=== PATIENT | female | born 1975 | race Caucasian/White ===

== ENCOUNTER → 2016-12-20 | Outpatient (CLI) | payer BC ==
--- NOTE | 2016-12-20 16:25 | RAD ---
Three-view cervical spine radiographs 12/20/2016 Clinical history: Neck pain which radiates down both shoulders, left greater than right for one month. AP, lateral, swimmer's lateral and AP open mouth odontoid digital radiographs of the cervical spine were obtained. There is slight reversal of the normal cervical lordosis. Minimal lateral curvature of the cervical spine is seen convex to the right. No fracture or subluxation of the cervical vertebrae is seen. Mild degenerative changes are seen involving the lower cervical disc spaces consisting of vertebral endplate sclerosis and minimal to mild anterior vertebral body osteophyte formation. No prevertebral soft tissue swelling is seen. Impression: Mild degenerative changes are seen involving the lower cervical spine. No acute osseous abnormality is seen.
== END | disposition home or self-care (01) ==
LOC: DXRADRC 13:57
PROVIDERS: ATTEND General Practice
DX: M54.2 Cervicalgia (principal)
CPT/HCPCS: 72040

== ENCOUNTER → 2018-06-21 | Outpatient (CLI) | payer BC ==
--- NOTE | 2018-06-21 17:59 | RAD ---
Indication:FELL THIS MORNING, 3RD/4TH DIGIT PAIN, RIGHT WRIST/HAND PAIN TECHNIQUE: 3 views of right hand COMPARISON: None FINDINGS/ impression: No acute fracture or dislocation. No soft tissue abnormality. No arthritis. Electronically signed by: Ruben Baker DO (06/21/2018 5:55 PM) [facility]
--- NOTE | 2018-06-21 18:02 | RAD ---
Indication: Fall, pain. TECHNIQUE: 2 views of the right wrist COMPARISON: None Findings/ impression: No acute fracture or dislocation. Electronically signed by: Ruben Baker DO (06/21/2018 5:58 PM) [facility]
== END | disposition home or self-care (01) ==
LOC: DXRAD 17:07
PROVIDERS: ATTEND Physician Assistant
DX: S63.591A Other specified sprain of right wrist, initial encounter (principal); M79.644 Pain in right finger(s); X58.XXXA Exposure to other specified factors, initial encounter; Y93.89 Activity, other specified; Y92.89 Other specified places as the place of occurrence of the external cause; Y99.8 Other external cause status
CPT/HCPCS: 73100; 73120

== ENCOUNTER 2018-12-30 22:49 | Emergency (ER) | payer BC ==
[~2018-12-30] VITALS: Ht 172.7 cm; Wt 145.5 kg
[2018-12-30 22:50] VITALS: BP 137/75
--- NOTE | 2018-12-30 22:56 | ED.ADGEN ---
Past History Past Medical History: No Pertinent History, Bipolar Past Surgical History: No Surgical History Smoking: Non-smoker Alcohol Use: None Drug Use: None Adult General Chief Complaint Chief Complaint ".. I had this tooth pulled.. ( (15).. they said everything was okay.. but now hold side of my face is swollen..." [facility] HPI Patient is a 43 year old FEMALE who presents with above hx and complaints of dental pain at site of distal extraction (2014. Patient has erythema of the gum at site 15. . Has swelling of facial cheek on the left. Does have slight adenop athy at angle of jaw. No pointing abscess. Patient denies any history immunosuppression. No recent travel. No trismus. Patient not currently on antibiotics. Review of Systems Review of Systems Constitutional: Subjective complaints of fever Eyes: Denies change in visual acuity, redness, or eye pain [] HENT: Denies nasal congestion or sore throat []complaints of dental pain and facial swelling Respiratory: Denies cough or shortness of breath [] Cardiovascular: No additional information not addressed in HPI [] GI: Denies abdominal pain, nausea, vomiting, bloody stools or diarrhea [] : Denies dysuria or hematuria [] Musculoskeletal: Denies back pain or joint pain [] Integument: Denies rash or skin lesions [] Neurologic: Denies headache, focal weakness or sensory changes [] Endocrine: Denies polyuria or polydipsia [] All other systems were reviewed and found to be within normal limits, except as documented in this note. Family History Family History Noncontributory Current Medications Current Medications Current Medications Medications (Trade) Dose Ordered Sig/[facility] Start Time Stop Time Status Last Admin Dose Admin Ceftriaxone Sodium (Rocephin Im) 1 gm 1X ONCE 12/31/18 00:00 12/31/18 00:01 DC 12/31/18 00:25 1 GM Ketorolac Tromethamine (Toradol Im) 60 mg 1X ONCE 12/31/18 00:30 12/31/18 00:31 DC 12/31/18 00:25 60 MG Lidocaine HCl 20 ml STK-MED ONCE 12/31/18 00:15 12/31/18 00:16 DC Metronidazole (Flagyl) 500 mg 1X ONCE 12/31/18 00:30 12/31/18 00:31 DC 12/31/18 00:24 500 MG Allergies Allergies Allergies Coded Allergies Type Severity Reaction Last Updated Verified Sulfa (Sulfonamide Antibiotics) Adverse Reaction VOMITING 08/30/13 Yes codeine Adverse Reaction MANIC 08/30/13 Yes morphine Adverse Reaction MANIC 08/30/13 Yes Physical Exam Physical Exam Constitutional: Moderately acute distress, non-toxic appearance. [] HENT: Normocephalic, atraumatic, bilateral external ears normal, oropharynx moist, no oral exudates, nose normal. []Left facial swelling and pain at site of extraction tooth 15 Eyes: PERRLA, EOMI, conjunctiva normal, no discharge. [] Neck: Normal range of motion, no tenderness, supple, no stridor. [] Cardiovascular:Heart rate regular rhythm, no murmur [] Lungs & Thorax: Bilateral breath sounds equal apex auscultation [] Abdomen: Bowel sounds normal, soft, no tenderness, no masses, no pulsatile masses. [] Morbid obesity. Skin: Warm, dry, no erythema, no rash. [] Back: No tenderness, no CVA tenderness. [] Extremities: No tenderness, no cyanosis, no clubbing, ROM intact, ankle edema. [] Neurologic: Alert and oriented X 3, normal motor function, normal sensory function, no focal deficits noted. [] Psychologic: Affect anxious, judgement normal, mood normal. [] Current Patient Data Lab Results Laboratory Tests Test 12/30/18 23:41 POC Urine HCG, Qualitative hcg negative (Negative) EKG EKG [] Radiology/Procedures Radiology/Procedures [] Course & Med Decision Making Course & Med Decision Making Pertinent Labs and Imaging studies reviewed. (See chart for details) Pt. to keep dental followup. Take Tylenol and Ibuprofen for pain. Marked discomfort take Percocet. Take Keflex 500 three times a day, Take Flagyl 500 three times aday. Must follow. [] Final Impression Final Impression 1. Dental Pain[] 15. 2. Cellulitis vs Abscess Andriy Disclaimer Andriy Disclaimer This electronic medical record was generated, in whole or in part, using a voice recognition dictation system. Discharge Summary Visit Information Final Diagnosis Problems Medical Problems: (1) Dental abscess Status: Acute (2) Pain, dental Status: Acute Brief Hospital Course Allergies Allergies Coded Allergies Type Severity Reaction Last Updated Verified Sulfa (Sulfonamide Antibiotics) Adverse Reaction VOMITING 2/20/14 Yes codeine Adverse Reaction MANIC 08/30/13 Yes morphine Adverse Reaction MANIC 08/30/13 Yes Lab Results Laboratory Tests Test 12/30/18 23:41 Bedside Urine HCG, Qualitative hcg negative (Negative) Brief Hospital Course Ms. Jean is a 43 old female who presented with dental pain and abscess/cellulitis at location of tooth 15 - extracted. Discharge Information Condition at Discharge: Stable Disposition/Orders: D/C to Home Dischare Medications Current Medications Ceftriaxone Sodium (Rocephin Im) 1 gm 1X ONCE IM Last administered on 12/31/18at 00:25; Admin Dose 1 GM; Start 12/31/18 at 00:00; Stop 12/31/18 at 00:01; Status DC Ketorolac Tromethamine (Toradol Im) 60 mg 1X ONCE IM Last administered on 12/31/18at 00:25; Admin Dose 60 MG; Start 12/31/18 at 00:30; Stop 12/31/18 at 00:31; Status DC Metronidazole (Flagyl) 500 mg 1X ONCE PO Last administered on 12/31/18at 00:24; Admin Dose 500 MG; Start 12/31/18 at 00:30; Stop 12/31/18 at 00:31; Status DC Lidocaine HCl 20 ml STK-MED ONCE .ROUTE ; Start 12/31/18 at 00:15; Stop 12/31/18 at 00:16; Status DC Active Scripts Active Percocet 5-325 Mg Tablet (Oxycodone Hcl/Acetaminophen) 1 Each Tablet 1 Tab PO PRN Q6HRS PRN Flagyl (Metronidazole) 500 Mg Tablet 500 Mg PO TID 10 Days Hydrocodone-Ibuprofen 7.5-200 (Hydrocodone/Ibuprofen) 1 Each Tablet 1 Tab PO PRN Q6HRS PRN Keflex (Cephalexin) 500 Mg Capsule 500 Mg PO TID Andriy Disclaimer This chart was dictated in whole or in part using Voice Recognition software in a busy, high-work load, and often noisy Emergency Department environment. It may contain unintended and wholly unrecognized errors or omissions. KYLEIGH JAIMES MD Dec 30, 2018 22:56
[2018-12-30] MEDS ORDERED: CEPH-264 PO (23:42)
[2018-12-31] MEDS ORDERED: cefTRIAXone IM 1 GM VIAL IM ONE
[2018-12-31] MEDS ORDERED: METR500T PO (00:06)
[2018-12-31] MEDS ORDERED: HYDR-1179 PO (00:06)
[2018-12-31] MEDS ORDERED: LIDOCAINE 1% Multi-Dose 20 ML VIAL. ONE (00:15)
[2018-12-31] MEDS ORDERED: KETOROLAC 60 MG/2 ML VIAL. IM ONE (00:30)
[2018-12-31] MEDS ORDERED: metroNIDAZOLE 500 MG TABLET PO ONE (00:30)
[2018-12-31] MEDS ORDERED: OXYC1TAB15 PO (01:00)
== END 2018-12-31 01:00 | disposition home or self-care (01) ==
LOC: ER 22:49
DX: K04.7 Periapical abscess without sinus (principal); F31.9 Bipolar disorder, unspecified; Z88.2 Allergy status to sulfonamides; Z88.5 Allergy status to narcotic agent; Z79.899 Other long term (current) drug therapy
CPT/HCPCS: 81025; 96372; 99284; J0696; J1885

== ENCOUNTER 2019-03-20 16:22 | Emergency (ER) | payer BC ==
[~2019-03-20] VITALS: Ht 172.7 cm; Wt 142.8 kg
[2019-03-20 16:22] VITALS: BP 135/100
[~2019-03-20 16:22] MED LIST: CEPH-264 PO; HYDR-1179 PO; METR500T PO; OXYC1TAB15 PO
[2019-03-20] MEDS ORDERED: KETOROLAC 60 MG/2 ML VIAL. IM ONE (17:15)
[2019-03-20] MEDS ORDERED: ORPHENADRINE CITRATE 60 MG/2 ML VIAL. IM ONE (17:15)
--- NOTE | 2019-03-20 17:15 | PHYS DOC ---
Past History Past Medical History: No Pertinent History, Bipolar Past Surgical History: No Surgical History Smoking: Non-smoker Alcohol Use: None Drug Use: None Adult General Chief Complaint Chief Complaint: BACK PAIN OR INJURY [facility] HPI 43-year-old female presents to emergency Department with complaints of right knee pain, acute on chronic back pain. Patient states she was getting up from a sitting position today on the floor and felt a pop in her knee subsequently she's had increasing pain as well as spasm to her lower back. She thinks that she has exacerbated her low back pain by favoring her right knee. Denies any shortness of breath, nausea, vomiting, chest pain Review of Systems Review of Systems Constitutional: Denies fever or chills [] Respiratory: Denies cough or shortness of breath [] Cardiovascular: No additional information not addressed in HPI [] GI: Denies abdominal pain, nausea, vomiting, bloody stools or diarrhea [] Musculoskeletal: Lumbar back pain, right knee pain Integument: Denies rash or skin lesions [] Neurologic: Denies headache, focal weakness or sensory changes [] All other systems were reviewed and found to be within normal limits, except as documented in this note. Current Medications Current Medications Current Medications Medications (Trade) Dose Ordered Sig/[facility] Start Time Stop Time Status Last Admin Dose Admin Ketorolac Tromethamine (Toradol Im) 60 mg 1X ONCE 03/20/19 17:15 03/20/19 17:16 Orphenadrine Citrate (Norflex) 60 mg 1X ONCE 03/20/19 17:15 03/20/19 17:16 Allergies Allergies Allergies Coded Allergies Type Severity Reaction Last Updated Verified Sulfa (Sulfonamide Antibiotics) Adverse Reaction VOMITING 08/30/13 Yes codeine Adverse Reaction MANIC 08/30/13 Yes morphine Adverse Reaction MANIC 08/30/13 Yes Physical Exam Physical Exam Constitutional: Well developed, well nourished, in mild distress secondary to pain HENT: Normocephalic, atraumatic, bilateral external ears normal, oropharynx moist, no oral exudates, nose normal. [] Eyes: PERRLA, EOMI, conjunctiva normal, no discharge. [] Cardiovascular:Heart rate regular rhythm, no murmur [] Lungs & Thorax: Bilateral breath sounds clear to auscultation [] Abdomen: Bowel sounds normal, soft, no tenderness, no masses, no pulsatile masses. [] Skin: Warm, dry, no erythema, no rash. [] Back: Tender to palpation along the midline as well as paraspinous muscles Extremities: Tenderness appreciated over the knee, no significant malformation appreciated Neurologic: Alert and oriented X 3, normal motor function, normal sensory function, no focal deficits noted. [] Psychologic: Affect normal, judgement normal, mood normal. [] Current Patient Data Vital Signs * Moderate Temperature (Fahrenheit): * 98.1 degrees F (97.6-99.5) Patient Temperature * 98.1 degrees F (97.5-99.5) Temperature Source * Oral Blood Pressure Systolic * 135 mm Hg (100-140) Blood Pressure Diastolic * 100 mm Hg (60-100) Blood Pressure Mean * 112 mm Hg Pulse Rate * 68 beats per minute (60-90) Respiratory Rate * 20 breaths per minute (12-24) Oxygen Delivery Method * Room Air Bedside Pulse Oximetry * 98 % Treatment Prior to Arrival EKG EKG [] Radiology/Procedures Radiology/Procedures [] Course & Med Decision Making Course & Med Decision Making Pertinent Labs and Imaging studies reviewed. (See chart for details) She presented to the emergency Department with complaints of right knee, acute on chronic back pain. Since was getting up from a sitting position today with injury of her right knee pop, states she's been favoring her right knee which has exacerbated her chronic back pain. Recent right more flex and Toradol. Imaging reviewed. Well's score, for DVT 0 low risk. Discussed dc with patient and plans for follow up with PCP. Rx provided for pain and spasm. Dragon Disclaimer Dragon Disclaimer This electronic medical record was generated, in whole or in part, using a voice recognition dictation system. Departure Departure: Impression: Primary Impression: Right knee pain Additional Impression: Acute exacerbation of chronic low back pain Disposition: HOME, SELF-CARE Condition: STABLE Referrals: STEF PIEDRA MD (PCP) Patient Instructions: Back Pain, Adult, [id number], Knee Pain, [id number] Scripts Tramadol Hcl (TRAMADOL HCL) 50 Mg Tablet 50 MG PO PRN Q6HRS PRN for PAIN, #10 TAB Prov: MICHAEL QUEEN MD 03/20/19 Cyclobenzaprine Hcl (CYCLOBENZAPRINE HCL) 5 Mg Tablet 1 TAB PO TID for Muscle Spasm for 10 Days, #30 TAB Prov: MICHAEL QUEEN MD 03/20/19 Problem Qualifiers Primary Impression: Right knee pain Chronicity: acute Qualified Codes: M25.561 - Pain in right knee MICHAEL QUEEN MD Mar 20, 2019 17:15
--- NOTE | 2019-03-20 17:57 | RAD ---
Right knee 3 views. HISTORY: Right knee injury 3 views were taken of the right knee. There is not evidence of an acute fracture. There is no joint effusion. There is no acute osseous abnormality. IMPRESSION: 1. No acute osseous abnormality noted in the right knee. Electronically signed by: Alexander Mon MD (03/20/2019 5:54 PM) [id number]
[2019-03-20] MEDS ORDERED: TRAM50TA PO (18:06)
[2019-03-20] MEDS ORDERED: CYCL5TAB PO (18:06)
--- NOTE | 2019-03-20 20:40 | RAD ---
Three-view lumbar spine radiographs 03/20/2019 CLINICAL HISTORY: Acute on chronic low back pain. AP and 2 lateral digital radiographs of the lumbar spine were obtained. A lap band device is noted in place. Surgical clips are seen within the right upper quadrant abdomen consistent with a cholecystectomy. Minimal S-shaped curvature of the thoracolumbar spine is seen. No fracture or subluxation of the lumbar vertebrae is noted. Degenerative changes are seen involving the lumbar disc spaces consisting of varying degrees of disc space narrowing, vertebral endplate sclerosis and minimal to mild anterior and posterior vertebral body osteophyte formation. Degenerative changes are seen involving the facet joints of the lower lumbar spine. IMPRESSION: Degenerative changes are seen involving lumbar spine as discussed above. No fracture or subluxation is seen. Electronically signed by: Jose Jackson MD (03/20/2019 8:37 PM) [facility]
== END 2019-03-20 18:30 | disposition home or self-care (01) ==
LOC: ER 16:22
DX: M25.561 Pain in right knee (principal); G89.29 Other chronic pain; M54.5 Low back pain; F31.9 Bipolar disorder, unspecified; Z88.2 Allergy status to sulfonamides; Z88.5 Allergy status to narcotic agent; X50.9XXA Other and unspecified overexertion or strenuous movements or postures, initial encounter; Y93.89 Activity, other specified; Y92.89 Other specified places as the place of occurrence of the external cause; Y99.8 Other external cause status
CPT/HCPCS: 72100; 73562; 96372; 99284; J1885; J2360

== ENCOUNTER 2019-05-03 14:50 | Emergency (ER) | payer BC ==
[~2019-05-03] VITALS: Ht 171.4 cm; Wt 141.3 kg
[~2019-05-03 14:50] MED LIST changes: +CYCL5TAB PO; +TRAM50TA PO
[2019-05-03] MEDS ORDERED: ASPIRIN 81 MG TAB.CHEW PO ONE (15:15)
--- NOTE | 2019-05-03 15:23 | EKG ---
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
--- NOTE | 2019-05-03 15:34 | PHYS DOC ---
Past History Past Medical History: Anxiety, Bipolar, Depression Past Surgical History: Cholecystectomy, Tonsillectomy, Other Additional Past Surgical Histo: lap band; lymph node removed from neck Smoking: Non-smoker Alcohol Use: Occasionally Drug Use: None Adult General Chief Complaint Chief Complaint: ANXIETY/PANIC ATTACK [facility] HPI Patient is a 43-year-old female who presents to the emergency department for evaluation from her PCPs office. She has a history of anxiety, along with bipolar disorder, as well as obesity. She states that she had been prescribed Xanax in the past but had not been taking for about a year but has been having worsening anxiety attacks. She states that she has been having increasing anxiety attacks over the past several days, and associated with her anxiety attacks he has had pressure in her chest. She states that she has had the EXACT SAME pressure in her chest with prior anxiety attacks in the past. She went to her PCPs office, who restarted her Xanax today, by prescription, but because of the chest discomfort an EKG was performed. The patient's PCP called because he was concerned that there was some changes in the lateral leads, primarily V4- v6.. Upon my review of the EKG from the PCPs office, it appears that there are some subtle nonspecific changes on the simultaneous QRS complex in lead V4, V5, and V6, which are not present on the other complexes, suggesting that this might have been related to some artifact at the time. The patient denies any significant shortness of breath, dyspnea on exertion, nausea, vomiting, or diaphoresis. There are no alleviating or exacerbating factors to her symptoms. Soon after I assessed the patient she did have a full one panic attack in the emergency department and requests something to help manage her anxiety, which she thinks is the primary drivers' cash clerk of her symptoms. She reports having had a stressful time at work recently which is what has exacerbated her anxiety. She denies SI or HI. Review of Systems Review of Systems Constitutional: Denies fever or chills [] Eyes: Denies change in visual acuity, redness, or eye pain [] HENT: Denies nasal congestion or sore throat [] Respiratory: Denies cough or shortness of breath [] Cardiovascular: No additional information not addressed in HPI [] GI: Denies abdominal pain, nausea, vomiting, bloody stools or diarrhea [] : Denies dysuria or hematuria [] Musculoskeletal: Denies back pain or joint pain [] Integument: Denies rash or skin lesions [] Neurologic: Denies headache, focal weakness or sensory changes [] Endocrine: Denies polyuria or polydipsia [] All other systems were reviewed and found to be within normal limits, except as documented in this note. Current Medications Current Medications Current Medications Medications (Trade) Dose Ordered Sig/[facility] Start Time Stop Time Status Last Admin Dose Admin Aspirin (Children'S Aspirin) 324 mg 1X ONCE 05/03/19 15:15 05/03/19 15:16 UNV 05/03/19 15:23 324 MG Lorazepam (Ativan Inj) 1 mg 1X ONCE 05/03/19 15:15 05/03/19 15:16 UNV 05/03/19 15:23 1 MG Allergies Allergies Allergies Coded Allergies Type Severity Reaction Last Updated Verified Sulfa (Sulfonamide Antibiotics) Adverse Reaction Unknown VOMITING 05/03/19 Yes codeine Adverse Reaction Unknown MANIC 05/03/19 Yes morphine Adverse Reaction Unknown MANIC 05/03/19 Yes Physical Exam Physical Exam PHYSICAL EXAM: CONSTITUTIONAL: Well developed, well nourished HEAD: normocephalic, atraumatic EENT: PERRL, EOMI. Conjunctivae normal color, sclerae non-icteric; moist mucous membranes. NECK: Supple, non-tender; no meningismus. LUNGS: Lungs CTA, breathing even and unlabored. Normal air movement. HEART: Regular rate and rhythm, no murmur CHEST: No deformity; there is tenderness to palpation to the anterior chest, which reproduces the patient's pain. ABDOMEN: The abdomen is soft, there is mild epigastric tenderness to palpation, the remainder the abdomen is soft and non-tender, no masses or bruits. EXTREM: Normal ROM; no deformity, no calf tenderness. Normal pulses palpable in all extremities. There is no pedal edema. SKIN: No rash; no diaphoresis NEURO: Alert; normal speech and cognition; CN's grossly intact; strength grossly intact without focal deficit. BACK: No CVA TTP. Current Patient Data Vital Signs Vital Signs Date Time Temp Pulse Resp B/P (MAP) Pulse Ox O2 Delivery O2 Flow Rate FiO2 05/03/19 15:27 75 27 159/75 (103) 98 Room Air 05/03/19 14:59 97.7 Lab Results Laboratory Tests Test 05/03/19 15:20 White Blood Count 7.4 x10^3/uL Red Blood Count 4.71 x10^6/uL Hemoglobin 13.1 g/dL Hematocrit 39.6 % Mean Corpuscular Volume 84 fL Mean Corpuscular Hemoglobin 28 pg Mean Corpuscular Hemoglobin Concent 33 g/dL Red Cell Distribution Width 14.4 % Platelet Count 382 x10^3/uL Neutrophils (%) (Auto) 62 % Lymphocytes (%) (Auto) 31 % Monocytes (%) (Auto) 5 % Eosinophils (%) (Auto) 1 % Basophils (%) (Auto) 1 % Neutrophils # (Auto) 4.5 x10^3uL Lymphocytes # (Auto) 2.3 x10^3/uL Monocytes # (Auto) 0.4 x10^3/uL Eosinophils # (Auto) 0.1 x10^3/uL Basophils # (Auto) 0.1 x10^3/uL Sodium Level 140 mmol/L Potassium Level 3.1 mmol/L Chloride Level 105 mmol/L Carbon Dioxide Level 27 mmol/L Anion Gap 8 Blood Urea Nitrogen 15 mg/dL Creatinine 1.0 mg/dL Estimated GFR (Cockcroft-Gault) 60.0 BUN/Creatinine Ratio 15 Glucose Level 99 mg/dL Calcium Level 8.7 mg/dL Total Bilirubin 0.5 mg/dL Aspartate Amino Transf (AST/SGOT) 16 U/L Alanine Aminotransferase (ALT/SGPT) 15 U/L Alkaline Phosphatase 78 U/L Troponin I Quantitative < 0.017 ng/mL Total Protein 7.6 g/dL Albumin 3.5 g/dL Albumin/Globulin Ratio 0.9 Lipase 106 U/L Current Medications Medications (Trade) Dose Ordered Sig/[place] Route PRN Reason Start Time Stop Time Status Last Admin Dose Admin Aspirin (Children'S Aspirin) 324 mg 1X ONCE PO 05/03/19 15:15 05/03/19 15:31 DC 05/03/19 15:23 Lorazepam (Ativan Inj) 1 mg 1X ONCE IV 05/03/19 15:15 05/03/19 15:31 DC 05/03/19 15:23 EKG EKG Normal sinus rhythm at a rate of 74 beats for minute, left axis deviation, normal intervals. There are no acute ischemic ST/T changes are present per nonspecific changes are present. There is no old EKG available for comparison.[] Radiology/Procedures Radiology/Procedures PROCEDURE: PORTABLE CHEST 1V Exam: Chest one view INDICATION: Chest pain TECHNIQUE: Frontal view of the chest Comparisons: None FINDINGS: The cardiomediastinal silhouette and pulmonary vessels are within normal limits. The lung and pleural spaces are clear. IMPRESSION: No acute cardiopulmonary process.[] Course & Med Decision Making Course & Med Decision Making Pertinent Labs and Imaging studies reviewed. (See chart for details) []4:10 PM: I had an extensive discussion with the patient about the limitations of ER cardiac evaluation in definitively ruling out acute coronary syndrome. We discussed limitation of the ER evaluation and a singe ED troponin in r/o AMI, and the risks involved in missed diagnosis of acute coronary syndrome including or permanent debility. I discussed overnight observation for further formal cardiac evaluation to rule out acute coronary syndrome. After expressing understanding of the limitations of ER cardiac evaluation, as well as the risks of missed diagnosis, the patient declined further cardiac evaluation at this time. The patient was mentally competent, and given opportunity to ask questions about the diagnosis and recommended plan of care. I stressed the importance of outpatient follow-up, and returning to the emergency department for new or worsening symptoms, or if the patient is agreeable to undergo further cardiac evaluation. However, clinical suspicion of the patient's chest pain is cardiac in origin is very low. She risk stratifies low. Dragon Disclaimer Dragon Disclaimer This electronic medical record was generated, in whole or in part, using a voice recognition dictation system. Departure Departure: Impression: Primary Impression: Atypical chest pain Additional Impression: Acute anxiety Disposition: 01 HOME, SELF-CARE Condition: STABLE Referrals: STEF PIEDRA MD (PCP) Patient Instructions: Anxiety and Panic Attacks, Chest Pain (Nonspecific) Problem Qualifiers GLORIA MILLS MD May 03, 2019 15:34
[2019-05-03 15:40] LABS: BASO # 0.1 x10^3/uL (0.0-0.2); BASO % 1 % (0-3); EOS # 0.1 x10^3/uL (0.0-0.7); EOS % 1 % (0-3); HEMATOCRIT 39.6 % (36.0-47.0); HEMOGLOBIN 13.1 g/dL (12.0-15.5); LYMPH # 2.3 x10^3/uL (1.0-4.8); LYMPH % 31 % (24-48); MEAN CORPUSCULAR HEMOGLOBIN 28 pg (25-35); MEAN CORPUSCULAR HGB CONC 33 g/dL (31-37); MEAN CORPUSCULAR VOLUME 84 fL (79-100); MONO # 0.4 x10^3/uL (0.0-1.1); MONO % 5 % (0-9); NEUT # 4.5 x10^3uL (1.8-7.7); NEUT % 62 % (31-73); PLATELET COUNT 382 x10^3/uL (140-400); RED BLOOD COUNT 4.71 x10^6/uL (3.50-5.40); RED CELL DISTRIBUTION WIDTH 14.4 % (11.5-14.5); WHITE BLOOD COUNT 7.4 x10^3/uL (4.0-11.0)
[2019-05-03 15:53] LABS: ALBUMIN 3.5 g/dL (3.4-5.0); ALBUMIN/GLOBULIN RATIO 0.9 (1.0-1.7); CALCIUM 8.7 mg/dL (8.5-10.1); POTASSIUM 3.1 mmol/L (3.5-5.1); TOTAL BILIRUBIN 0.5 mg/dL (0.2-1.0); TOTAL PROTEIN 7.6 g/dL (6.4-8.2)
--- NOTE | 2019-05-03 16:00 | RAD ---
Exam: Chest one view INDICATION: Chest pain TECHNIQUE: Frontal view of the chest Comparisons: None FINDINGS: The cardiomediastinal silhouette and pulmonary vessels are within normal limits. The lung and pleural spaces are clear. IMPRESSION: No acute cardiopulmonary process. Electronically signed by: Graeme Brewer MD (05/03/2019 3:57 PM) [id number]
[2019-05-03 16:30] VITALS: BP 125/69
== END 2019-05-03 16:30 | disposition home or self-care (01) ==
LOC: ER 14:50
DX: F41.8 Other specified anxiety disorders (principal); R07.89 Other chest pain; F31.9 Bipolar disorder, unspecified; E66.9 Obesity, unspecified; Z68.42 Body mass index [BMI] 45.0-49.9, adult; Z88.2 Allergy status to sulfonamides; Z88.5 Allergy status to narcotic agent
CPT/HCPCS: 36415; 71045; 80053; 83690; 84484; 85025; 93005; 96374; 99285; J2060

== ENCOUNTER 2019-10-15 13:58 | Emergency (ER) | payer BC ==
[~2019-10-15] VITALS: Ht 171.4 cm; Wt 139.0 kg
[2019-10-15] MEDS: methylPREDNISolone SOD SUCC PF 125 MG/2 ML VIAL. IV ONE (14:15)
[2019-10-15] MEDS: FAMOTIDINE 20 MG/2 ML VIAL IVP ONE (14:15)
[2019-10-15] MEDS: IV NORMAL SALINE 1,000ML 1,000 ML IV ONE (14:15)
[2019-10-15 14:30] VITALS: BP 134/84
--- NOTE | 2019-10-15 14:48 | PHYS DOC ---
Past History Past Medical History: Anxiety, Bipolar, Depression Past Surgical History: Cholecystectomy, Tonsillectomy, Other Additional Past Surgical Histo: lap band; lymph node removed from neck Smoking: Non-smoker Alcohol Use: Occasionally Drug Use: None General Adult EDM: Chief Complaint: COUGH HPI: HPI: 43 year old female presents with concern for allergic reaction. 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 She had a smoothie that she found after she drank it that had the substance in it. Patient has a dry cough and a slight feeling of throat tightness. She has not had any shortness of breath. She has had similar reaction in the past that required epinephrine, but no intubation or admission to the hospital. She does did not want this to progress to that point so she came in earlier this time. She did take 2 Benadryl prior to arrival. She was feeling completely normal prior to this episode. She has no other complaints at this time. Review of Systems: Review of Systems: Constitutional: Denies fever or chills Eyes: Denies change in visual acuity HENT: Denies nasal congestion or sore throat Respiratory: Cough with mild shortness of breath Cardiovascular: Denies chest pain or edema GI: Denies abdominal pain, nausea, vomiting, bloody stools or diarrhea : Denies dysuria Musculoskeletal: Denies back pain or joint pain Integument: Denies rash Neurologic: Denies headache, focal weakness or sensory changes Endocrine: Denies polyuria or polydipsia Lymphatic: Denies swollen glands Psychiatric: Denies depression or anxiety Heart Score: Risk Factors: Risk Factors: DM, Current or recent (<one month) smoker, HTN, HLP, family history of CAD, obesity. Risk Scores: Score 0 - 3: 2.5% MACE over next 6 weeks - Discharge Home Score 4 - 6: 20.3% MACE over next 6 weeks - Admit for Clinical Observation Score 7 - 10: 72.7% MACE over next 6 weeks - Early Invasive Strategies Current Medications: Current Meds: Current Medications Medications (Trade) Dose Ordered Sig/[place] Start Time Stop Time Status Last Admin Dose Admin Alprazolam (Xanax) 0.5 mg 1X ONCE 10/15/19 14:45 10/15/19 14:46 UNV Diphenhydramine HCl (Benadryl) 50 mg 1X ONCE 10/15/19 14:15 10/15/19 14:16 DC Famotidine (Pepcid Vial) 20 mg 1X ONCE 10/15/19 14:15 10/15/19 14:16 DC 10/15/19 14:15 20 MG Methylprednisolone Sodium Succinate (SOLU-Medrol 125MG VIAL) 125 mg 1X ONCE 10/15/19 14:15 10/15/19 14:16 DC 10/15/19 14:15 125 MG Sodium Chloride 1,000 ml @ 1,000 mls/hr 1X ONCE 10/15/19 14:15 10/15/19 15:14 10/15/19 14:15 1,000 MLS/HR Allergies: Allergies: Allergies Coded Allergies Type Severity Reaction Last Updated Verified Sulfa (Sulfonamide Antibiotics) Adverse Reaction Unknown VOMITING 05/03/19 Yes codeine Adverse Reaction Unknown MANIC 05/03/19 Yes morphine Adverse Reaction Unknown MANIC 05/03/19 Yes Physical Exam: PE: Constitutional: Well developed, well nourished, no acute distress, non-toxic appearance. [] HENT: Normocephalic, atraumatic, bilateral external ears normal, oropharynx moist, no oral exudates, nose normal. [] Eyes: PERRLA, EOMI, conjunctiva normal, no discharge. [] Neck: Normal range of motion, no tenderness, supple, no stridor. [] Cardiovascular: Heart rate 60s, regular rhythm, no murmur [] Lungs & Thorax: Bilateral breath sounds clear to auscultation [] Abdomen: Bowel sounds normal, soft, no tenderness, no masses, no pulsatile masses. [] Skin: Warm, dry, no erythema, no rash. [] Back: No tenderness, no CVA tenderness. [] Extremities: No tenderness, no cyanosis, no clubbing, ROM intact, no edema. [] Neurologic: Alert and oriented X 3, normal motor function, normal sensory function, no focal deficits noted. [] Psychologic: Affect normal, judgement normal, mood normal. [] EKG: EKG: [] Radiology/Procedures: Radiology/Procedures: [] Course & Med Decision Making: Course & Med Decision Making Pertinent Labs and Imaging studies reviewed. (See chart for details) The patient's labs are unremarkable. She has been given 125 Solu-Medrol IV, a liter of normal saline, an additional 50 mg of Benadryl IV. She is feeling much better. We observed her for more than 2 hours and she has had no decline in her symptoms. She feels ready to go home. She is stable for discharge at this time. [] [place] Disclaimer: Andriy Disclaimer: This electronic medical record was generated, in whole or in part, using a voice recognition dictation system. Departure Departure: Impression: Primary Impression: Allergic reaction to food Qualified Codes: T78.1XXA - Other adverse food reactions, not elsewhere classified, initial encounter Disposition: HOME, SELF-CARE Condition: IMPROVED Referrals: STEF PIEDRA MD (PCP) Patient Instructions: Food Allergy, [id number] MICHELE MOHAMUD DO Oct 15, 2019 14:48
[2019-10-15] MEDS: ALPRAZolam 0.25 MG TABLET PO ONE (14:55)
[2019-10-15 15:17] LABS: BASO # 0.1 x10^3/uL (0.0-0.2); BASO % 1 % (0-3); EOS # 0.1 x10^3/uL (0.0-0.7); EOS % 2 % (0-3); HEMATOCRIT 42.1 % (36.0-47.0); HEMOGLOBIN 14.1 g/dL (12.0-15.5); LYMPH # 2.7 x10^3/uL (1.0-4.8); LYMPH % 39 % (24-48); MEAN CORPUSCULAR HEMOGLOBIN 29 pg (25-35); MEAN CORPUSCULAR HGB CONC 34 g/dL (31-37); MEAN CORPUSCULAR VOLUME 85 fL (79-100); MONO # 0.3 x10^3/uL (0.0-1.1); MONO % 4 % (0-9); NEUT # 3.7 x10^3uL (1.8-7.7); NEUT % 54 % (31-73); PLATELET COUNT 401 x10^3/uL (140-400); RED BLOOD COUNT 4.93 x10^6/uL (3.50-5.40); RED CELL DISTRIBUTION WIDTH 14.5 % (11.5-14.5); WHITE BLOOD COUNT 6.9 x10^3/uL (4.0-11.0)
[2019-10-15 15:24] LABS: CALCIUM 8.8 mg/dL (8.5-10.1); POTASSIUM 3.7 mmol/L (3.5-5.1)
[2019-10-15] MEDS: diphenhydrAMINE 50 MG/ML VIAL IVP ONE (15:25)
[2019-10-15 15:29] LABS: ALBUMIN 3.8 g/dL (3.4-5.0); ALBUMIN/GLOBULIN RATIO 0.9 (1.0-1.7); TOTAL BILIRUBIN 0.6 mg/dL (0.2-1.0)
== END 2019-10-15 16:00 | disposition home or self-care (01) ==
LOC: ER 13:58
DX: T78.1XXA Other adverse food reactions, not elsewhere classified, initial encounter (principal); Z88.2 Allergy status to sulfonamides; Z88.5 Allergy status to narcotic agent; X58.XXXA Exposure to other specified factors, initial encounter
CPT/HCPCS: 36415; 80053; 85025; 96374; 96375; 99284; J1200; J2930; J3490; 99283; J7030